=== PATIENT | female | born 1950 | race Caucasian/White ===

== ENCOUNTER → 2017-02-15 | Outpatient (REF) | payer BC ==
[~2017-02-15] MED LIST: CHOL400T26 PO; OMEP20TA PO; RANI150T11 PO
[2017-02-15 15:22] LABS: ANION GAP 15.6 MEQ/L (3-15)
== END ==
LOC: LAB 15:00
PROVIDERS: ATTEND Internal Medicine
DX: I10 Essential (primary) hypertension (principal)
CPT/HCPCS: 80048

== ENCOUNTER → 2017-02-21 | Outpatient (CLI) | payer BC ==
[~2017-02-21] MED LIST changes: +NFLOSA25TA PO
== END ==
LOC: EMS 10:22
PROVIDERS: ATTEND Internal Medicine
DX: I16.1 Hypertensive emergency (principal); I24.8 Other forms of acute ischemic heart disease

== ENCOUNTER → 2017-02-21 | Emergency (ER) | payer BC ==
[~2017-02-21] VITALS: Ht 154.9 cm; Wt 79.0 kg
[~2017-02-21] MED LIST changes: +ASPIRIN 81 MG CHEW (CHILDREN'S ASA) PO ONE; +HEPARIN DRIP 25000 UNIT/250 ML 250 ML IV ONE; +NITROGLYCERIN 2% OINTMENT (NITRO-BID) 1 GM UNIT DOSE PACKET TOP ONE; +NITROGLYCERIN SUBLINGUAL 0.4 MG (NITROQUICK) TABLET SL PRN; +ONDANSETRON 2 MG/ML (Z0FRAN) 2 ML VIAL IV ONE; +SODIUM CHLORIDE 250 ML IV PRN; +SODIUM CHLORIDE FLUSH 3 ML SYR IV PRN; +meTOprolol 5 MG/5 ML (LOPRESSOR) VIAL IV ONE; +morphine INJ 4 MG/ML 1 ML SYRINGE IV PRN
--- OUTSIDE RECORDS SUMMARY | 2017-02-21 08:27 | XMS REPORT | Continuity of Care Document ---
Author Author [facility] Address Unknown Phone Unavailable Allergies Active Description Code Type Severity Reaction Onset Reported/Identified Relationship to Patient Clinical Status Yes No Known Drug Allergies [id number] Drug Allergy Unknown N/ A 09/02/2016 Medications Problems Date Dx Coded Attending Type Code Diagnosis Diagnosed By 07/22/2015 JAIRO JOHNS MD Ot V77.91 07/22/2015 JAIRO JOHNS MD Ot V82.89 07/22/2015 JAIRO JOHNS MD Ot V76.12 08/21/2015 JAIRO JOHNS MD Ot V70.0 08/21/2015 JAIRO JOHNS MD Ot V70.0 07/30/2016 JAIRO JOHNS MD Ot E78.0 PURE HYPERCHOLESTEROLEMIA 07/30/2016 JAIRO JOHNS MD Ot I10 ESSENTIAL (PRIMARY) HYPERTENSION 07/30/2016 JAIRO JOHNS MD Ot K21.9 GASTRO-ESOPHAGEAL REFLUX DISEASE WITHOUT 07/30/2016 JAIRO JOHNS MD Ot Z00.00 ENCNTR FOR GENERAL ADULT MEDICAL EXAM W 08/05/2016 JAIRO JOHNS MD Ot E78.0 PURE HYPERCHOLESTEROLEMIA 08/05/2016 JAIRO JOHNS MD Ot I10 ESSENTIAL (PRIMARY) HYPERTENSION 08/05/2016 JAIRO JOHNS MD Ot K21.9 GASTRO-ESOPHAGEAL REFLUX DISEASE WITHOUT 08/05/2016 JAIRO JOHNS MD Ot Z00.00 ENCNTR FOR GENERAL ADULT MEDICAL EXAM W 08/11/2016 JAIRO JOHNS MD Ot E78.0 PURE HYPERCHOLESTEROLEMIA 08/11/2016 JAIRO JOHNS MD Ot I10 ESSENTIAL (PRIMARY) HYPERTENSION 08/11/2016 JAIRO JOHNS MD Ot K21.9 GASTRO-ESOPHAGEAL REFLUX DISEASE WITHOUT 08/11/2016 JAIRO JOHNS MD Ot Z00.00 ENCNTR FOR GENERAL ADULT MEDICAL EXAM W / 08/26/2016 MOHSEN BLOOM MD Ot K44.9 DIAPHRAGMATIC HERNIA WITHOUT OBSTRUCTION 08/26/2016 MOHSEN BLOOM MD Ot R13.10 DYSPHAGIA, UNSPECIFIED 08/31/2016 MOHSEN BLOOM MD, Ot K44.9 DIAPHRAGMATIC HERNIA WITHOUT OBSTRUCTION 08/31/2016 MOHSEN BLOOM MD, Ot R13.10 DYSPHAGIA, UNSPECIFIED 09/03/2016 MOHSEN BLOOM MD Ot K21.0 GASTRO-ESOPHAGEAL REFLUX DISEASE WITH ES 09/03/2016 MOHSEN BLOOM MD, Ot K44.9 DIAPHRAGMATIC HERNIA WITHOUT OBSTRUCTION 09/08/2016 MOHSEN BLOOM MD, Ot K44.9 DIAPHRAGMATIC HERNIA WITHOUT OBSTRUCTION 09/08/2016 MOHSEN BLOOM MD, Ot R13.10 DYSPHAGIA, UNSPECIFIED 09/14/2016 MOHSEN BLOOM MD, Ot K21.0 GASTRO-ESOPHAGEAL REFLUX DISEASE WITH ES 09/14/2016 MOHSEN BLOOM MD, Ot K44.9 DIAPHRAGMATIC HERNIA WITHOUT OBSTRUCTION 02/18/2017 NAT DURAND, JAIRO Barker Ot I10 ESSENTIAL (PRIMARY) HYPERTENSION Procedures Results Test Result Range Complete blood count (CBC) with automated white blood cell (WBC) differential - 07/23/16 07:43 Blood automated leukocyte count 5.72 4.0 -11.0 Erythrocytes 4.86 4.00-5.00 12.0-16.0;g/dL 15.5 12.0-15.5 Hematocrit 44.40 35.00-45.00 Automated erythrocyte mean corpuscular volume 91 80-100 Mean corpuscular hemoglobin (MCH) determination 31.9 26.0-34.0 Automated erythrocyte mean corpuscular hemoglobin concentration measurement ( mass/volume) 34.9 31.0-37.0 Erythrocyte distribution width 13.1 11.8 -15.6 Automated blood platelet count 366 150- 450 Automated blood platelet mean volume measurement 9.2 6.0-9.5 Automated neutrophil percentage 48 51- 67 Lymphocytes/100 leukocytes 37 20-46 Automated monocyte percentage 7 3-11 Eosinophil count auto 6 0-4 Automated basophil percentage 1 0-2 Automated blood neutrophil count 2.8 Blood lymphocytes count (number/volume) 2.1 Automated blood monocyte count 0.4 Blood absolute eosinophil count 0.4 Basophils 0.1 Comprehensive metabolic panel - 07/23/16 07:43 Sodium measurement 102 70-110 Carbon dioxide measurement 25 22-29 Serum or plasma anion gap 19.8 3-15 BLOOD UREA NITROGEN 16 7-18 CREATININE SERUM 0.78 0.6-1.2 Brucella species antibody panel (IgG, IgM) 21 10-20 Estimated glomerular filtration rate (GFR) 90.3 Estimated glomerular filtration rate (GFR) non- 74.6 OSMOLALITY,CALCULATED 287 280-300 CALCIUM 9.7 8.8-10.8 Calculated ionized calcium measurement 4.2 3.8-4.6 BILIRUBIN,TOTAL 0.7 0.1-1.0 Serum or plasma alkaline phosphatase measurement 80 38-126 ASPARTATE AMINO TRANSFERASE 23 15-37 ALANINE AMINOTRANSFERASE 29 30-65 Serum or plasma total protein measurement 7.3 6.4-8.5 Serum or plasma albumin measurement 4.5 3.4-5.0 Serum or plasma albumin/globulin mass ratio 1.607 1.1-1.8 General health panel - 07/23/16 07:43 Total cell count 1.76 0.46-4.68 LIPID PANEL - 07/23/16 07:43 Cholesterol 191 50-200 HDL Cholesterol 47 40-60 Triglycerides 89 10-150 LDL CHOLESTEROL 126 50-130 VLDL Cholesterol, calc 18 4.00-40.00 Cholesterol.total/Cholesterol.in HDL 4.1 0.0-5.0 PATHOLOGY - 09/03/16 08:00 PATHOLOGY WP BASIC METABOLIC PANEL* - 02/15/17 14:05 Sodium measurement 103 70-110 CARBON DIOXIDE 25 22-29 Serum or plasma anion gap 15.6 3-15 BLOOD UREA NITROGEN 15 7-18 CREATININE SERUM 0.66 0.6-1.2 Brucella species antibody panel (IgG, IgM) 23 10-20 Estimated glomerular filtration rate (GFR) 109.1 Estimated glomerular filtration rate (GFR) non- 90.2 CALCIUM 9.8 8.8-10.8 Encounters ACCT No. Visit Date/Time Discharge Status Pt. Type Provider Facility Loc./Unit Complaint [id number] 09/03/2016 07:46:00 2015 09:45:00 DIS Outpatient MERLE DURAND, MOHSEN Barker [facility] EGD [id number] 07/25/2015 08:01:00 2014 23:59:59 CLS Outpatient NAT DURAND, [facility] LAB [id number] 07/23/2014 07:47:00 2013 23:59:59 CLS Outpatient NAT DURAND, [facility] RAD [id number] 07/03/2014 07:44:00 2013 23:59:59 CLS Outpatient NAT DURAND, [facility] LAB [id number] 02/15/2017 15:00:00 ACT Outpatient NAT DURAND, [facility] LAB LAB DROP OFF DR JOHNS [id number] 08/23/2016 09:30:00 ACT Outpatient MERLE DURAND, [facility] RAD DYSPHAGIA [id number] 07/23/2016 07:40:00 ACT Outpatient NAT DURAND, [facility] LAB
--- OUTSIDE RECORDS SUMMARY | 2017-02-21 08:28 | XMS REPORT | Continuity of Care Document ---
Author Author [facility] Address Unknown Phone Unavailable Allergies Active Description Code Type Severity Reaction Onset Reported/Identified Relationship to Patient Clinical Status Yes No Known Drug Allergies [id number] Drug Allergy Unknown N/ A 09/02/2016 Medications [...] BLOOM MD, Ot R13.10 DYSPHAGIA, UNSPECIFIED 09/03/2016 MOSHEN BLOOM MD Ot K21.0 GASTRO-ESOPHAGEAL REFLUX DISEASE [...] Status Pt. Type Provider Facility Loc./Unit Complaint [id number] 09/03/2016 07:46:00 2015 09:45:00 DIS Outpatient MERLE DURAND, MOHSEN Barker [facility] EGD [id number] 07/25/2015 08:01:00 2014 23:59:59 CLS Outpatient NAT DURAND, [facility] LAB [id number] 07/23/2014 07:47:00 2013 23:59:59 CLS Outpatient NAT DURAND, [facility] RAD [id number] 07/03/2014 07:44:00 2013 23:59:59 CLS Outpatient NAT DURAND, [facility] LAB [id number] 02/15/2017 15:00:00 ACT Outpatient NAT DURAND, [facility] LAB LAB DROP OFF DR JOHNS [id number] 08/23/2016 09:30:00 ACT Outpatient MERLE DURAND, [facility] RAD DYSPHAGIA [id number] 07/23/2016 07:40:00 ACT Outpatient NAT DURAND, [facility] LAB
[2017-02-21] MEDS: SODIUM CHLORIDE FLUSH 10 ML SYR IV PRN ×3 (08:48→10:11)
--- NOTE | 2017-02-21 09:00 | NUR ---
states to this nurse to hold off on losartan at this time after this nurse asked about it due to current BP being 128/80
--- NOTE | 2017-02-21 09:01 | Diagnostic Imaging Report ---
INDICATION: Chest pain. COMPARISON: 08/23/2016, oblique radiographs from barium swallow. Single frontal chest radiograph is performed. The cardiac silhouette size is top normal. The jessica are negative. Pulmonary vascularity is normal. No pleural effusion is identified. Questionable alveolar opacity is noted in the medial right lung base. Examination otherwise unremarkable. IMPRESSION: Questionable area of alveolar opacity, right medial lung base. Followup with PA and lateral chest x-ray. Dictated by: Dictated on workstation # [id number]
--- NOTE | 2017-02-21 09:09 | NUR ---
nitro 0843 nitro given pain 05/30 0847 nitro given pain 05/30 0850 pain 03/30 0853 nitro given pain 01/28 BP 138/88 0859 pain 12/31 BP 128/80
[2017-02-21 09:11] LABS: BASOPHILS % (AUTO) 1 % (0-2); EOSINOPHILS # (AUTO) 0.4 10^3uL; EOSINOPHILS % (AUTO) 6 % (0-4); LYMPHOCYTES # (AUTO) 2.7 X10^3; MEAN CORPUSCULAR HEMOGLOBIN 31.2 PG (26.0-34.0); MEAN CORPUSCULAR HGB CONC 34.2 g/dL (31.0-37.0); MEAN CORPUSCULAR VOLUME 91 FL (80-100); MEAN PLATELET VOLUME 9.5 FL (6.0-9.5); MONOCYTES # (AUTO) 0.4 X10^3; MONOCYTES % (AUTO) 7 % (3-11); NEUTROPHILS # (AUTO) 2.7 X10^3; NEUTROPHILS % (AUTO) 43 % (51-67); PLATELET COUNT 350 10^3uL (150-450); WHITE BLOOD COUNT 6.26 10^3uL (4.0-11.0)
[2017-02-21 09:21] LABS: ALBUMIN 4.5 g/dL (3.4-5.0); ANION GAP 18.5 MEQ/L (3-15); TOTAL PROTEIN 7.7 g/dL (6.4-8.5)
[2017-02-21 09:27] LABS: BILIRUBIN,URINE Negative (Negative); CLARITY,URINE Cloudy; COLOR,URINE Yellow; GLUCOSE, URINE (UA) Negative (Negative); LEUKOCYTE ESTERASE ,URINE 2+ (Negative); PH,URINE 8.5 (5.0 - 8.0)
[2017-02-21 09:33] LABS: RBC,URINE 0-2 /HPF; URINE CENTRIFUGED VOLUME 12 mL
--- NOTE | 2017-02-21 09:48 | NUR ---
Dr. Prather requests transfer Center at [place] to consult with Dr. Webster.
[2017-02-21] MEDS: meTOprolol 5 MG/5 ML (LOPRESSOR) VIAL IV SCH ×3 (09:57→10:22)
[2017-02-21 10:37] VITALS: BP 127/78
== END | disposition home or self-care (01) ==
LOC: ED 08:23
DX: I16.1 Hypertensive emergency (principal); I20.0 Unstable angina; I10 Essential (primary) hypertension
CPT/HCPCS: 36415; 71010; 80053; 81003; 81015; 82550; 82553; 84484; 85025; 85610; 85730; 87077; 87088; 87186; 93005; 96374; 96375; 99285; J1644; J2270; J2405; 93010